=== PATIENT | female | born 1995 | race Caucasian/White ===

== ENCOUNTER 2019-08-21 13:14 | Emergency (ER) | payer BC ==
[~2019-08-21] VITALS: Ht 162.6 cm; Wt 47.7 kg
[2019-08-21 13:16] VITALS: TEMP 98.6
[2019-08-21] MEDS ORDERED: ZYRTEC 10MG10 MG PO (13:21)
[2019-08-21 13:48] LABS: HEMOGLOBIN 12.3 g/dl (12.5-16.0); MEAN CELL VOLUME 92 fl (80.0-100.0); MEAN CORPUSCULAR HEMOGLOBIN 31 pg (27.0-31.0); MEAN CORPUSCULAR HGB CONC 34 g/dl (33.0-37.0); MEAN PLATELET VOLUME 9.4 fl (7.4-10.4); PLATELET COUNT 207 K/mm3 (130-400); RED BLOOD COUNT 3.95 M/mm3 (4.10-5.30); REDCELL DISTRIBUTION WIDTH-CV 12.6 % (11.5-14.5)
[2019-08-21 13:49] LABS: ALBUMIN 4.2 gm/dL (3.5-5.0); BILIRUBIN,TOTAL 0.5 mg/dL (0.0-1.0); CALCIUM 9.1 mg/dL (8.4-10.2); CREATININE, serum 0.7 (0.52-1.25); POTASSIUM 4.1 mmol/L (3.4-5.0); TOTAL PROTEIN 7.1 gm/dL (6.4-8.2)
[2019-08-21 14:01] LABS: HEMATOCRIT 36.3 % (37.0-47.0)
[2019-08-21 14:04] LABS: MONOSCREEN NEGATIVE
[2019-08-21 14:19] LABS: BAND 11 % (0-10); EOSINOPHIL 1 % (0-4); LYMPHOCYTE 11 % (20.0-51.0); NEUTROPHILS 68 % (42.0-75.2); PLATELET ESTIMATE NORMAL (NORMAL)
[2019-08-21] MEDS ORDERED: ZITHROMAX Z PA250 MG PO (15:31)
[2019-08-21] MEDS ORDERED: PREDNISONE20 MG PO (15:31)
[2019-08-21] MEDS ORDERED: ZOFRAN ODT4 MG PO (15:43)
[2019-08-21 16:07] VITALS: BP 112/72; PULSE 94
== END 2019-08-21 16:07 | disposition home or self-care (01) ==
LOC: COL.ER 13:14
PROVIDERS: Emergency Medicine; Physician Assistant
DX: J20.9 Acute bronchitis, unspecified (principal); R11.10 Vomiting, unspecified; Z88.6 Allergy status to analgesic agent
CPT/HCPCS: J2550